=== PATIENT | male | born 1965 | race Caucasian/White ===

== ENCOUNTER → 2023-02-16 08:58 | Outpatient (BNVA) | payer OTHER, SELFPAY | PROVIDERS: Visit Provider Podiatrist Foot & Ankle Surgery | DX: T84.84XA Pain due to internal orthopedic prosthetic devices, implants and grafts, initial encounter (principal); Y79.2 Prosthetic and other implants, materials and accessory orthopedic devices associated with adverse incidents; M72.0 Palmar fascial fibromatosis [Dupuytren]; M79.641 Pain in right hand; M72.2 Plantar fascial fibromatosis | CPT/HCPCS: 73130; 73630; 99203; 99204 ==

== ENCOUNTER 2023-03-06 08:11 | Day surgery (SDC) | payer OTHER, SELFPAY ==
[2023-03-03 11:58] VITALS: BMI 26.6
[2023-03-06] VITALS (8 sets, daily range): BP systolic 121–161; BP diastolic 70–106; PULSE 49–57; RESP 16–18; TEMP 36.1; O2SAT 94–97
--- NOTE | 2023-03-06 | XR_ITS ---
WS: [id number] C-ARM RADIOGRAPHS RIGHT FOREARM; 2 IMAGES HISTORY: right distal forearm hardware removal COMPARISON: 02/16/2023 hand radiograph. Imaging of the wrist is submitted. Hardware is no longer present. Hardware tracks are identified but the hardware has been removed from the distal radius. XR/XR forearm RT 2V [id number] IMPRESSION: Interval removal of the distal radial hardware.
--- NOTE | 2023-03-06 08:39 | P.ANESASSM_ITS ---
Pre-Anesthetic Assessment Height/Weight: Height 1.75 m Weight 81.647 kg Temp Pulse Resp BP Pulse Ox O2 Del Method 97 F L 57 L 18 131/73 94 Room Air 03/06/23 08:28 03/06/23 08:28 03/06/23 08:28 03/06/23 08:28 03/06/23 08:28 03/06/23 08:30 Preop Diagnosis: Right wrist painful orthopedic hardware Operation Date: 03/06/23 07:00 Proposed Procedures p Right distal radius hardware removal 22683,T84.84XA(Right) - Dhruv Dixie, DO Familial anesthetic complications: None Was Beta Anil taken within 24 hours: N/A Was Clonidine taken within 24 hours: N/A Last intake: Intake Last Liquid Date 03/25/23 Last Liquid Time 02:20 Last Solid Date 03/05/23 Last Solid Time 20:00 Social Tobacco and No alcohol Exam alert, oriented x 3, clear to auscultation bilaterally and regular rate & rhythm Airway Mallampati: Class II Dentition: other (missing) Anesthetic Plan ASA status: 2 Anesthesia: General Risk of > 500 ml blood loss (7ml/kg in children): No Medications/Allergies Home Medications Medication Instructions Recorded Confirmed Last Taken Type atorvastatin 40 mg tablet 40 mg PO DAILY 03/06/23 03/06/23 03/05/23 History Allergies Allergy/AdvReac Type Severity Reaction Status Date / Time No Known Allergies Allergy Verified 02/16/23 10:11 [facility] Anesthesia Social History (Updated 02/16/23 @ 10:12 by Ashley Beckman LPN) Smoking and tobacco status: current every day smoker Alcohol intake: never Marital status: Data Anesthesia Cardiac Studies: No Data to Display
[2023-03-06] MEDS: sodium chloride 0.9% 1,000 ML 30 ML IV (08:44)
[2023-03-06] MEDS: acetaminophen 1,000 MG/100 ML PIGGYBACK 400 MG IV (08:45)
[2023-03-06] MEDS: ketorolac 30 mg/mL INJ IVP (08:48)
--- NOTE | 2023-03-06 10:25 | W.PM.OPSUD ---
Surgery/Procedure H&P Update DATE OF PROCEDURE: March 06, 2023 DATE H&P PERFORMED: 02/16/23 CHANGES TO PREVIOUS DOCUMENTATION: None. No change in HPI from office visit on 02/16/2023. Patient continues to have pain with orthopedic hardware that is loosened. Healed fracture noted. We talked about treatment options through shared decision-making he would like to have this removed. Plan to proceed with right wrist removal of deep orthopedic hardware. Patient understands risk benefits complication alternatives surgery elects proceed with surgical intervention. All questions answered. PREOP DIAGNOSIS: Right wrist painful orthopedic hardware PRIMARY INDICATION FOR PROCEDURE: Right wrist painful orthopedic hardware. PLANNED PROCEDURE: Operation Date: 03/06/23 07:00 Proposed Procedures p Right distal radius hardware removal 40355,T84.84XA(Right) - Dhruv Abraham DO
[2023-03-06] MEDS: ceFAZolin 2,000 MG in sodium chloride 0.9% (plus) 50 ML 100 MG IV (10:42)
[2023-03-06] MEDS: BUPivacaine 0.5% INJ 10 mL INJECTION (11:53)
[2023-03-06] MEDS: lidocaine 1% INJ 10 mL (per mL) XX (11:53)
--- NOTE | 2023-03-06 12:11 | P.PCN_ITS ---
PACU note Narrative: Patient taken to PACU in stable condition recovering well. Pain controlled. Patient is dressing on in place clean dry and intact. Fingertips warm well- perfused brisk capillary refill less than 2 seconds sensation intact to light touch distally. Patient is able to wiggle fingers. Exam: awake Disposition: discharged
--- NOTE | 2023-03-06 12:11 | PM.OP2 ---
Brief Operative Note Date of procedure: 03/06/23 Pre-op diagnosis: Right distal radius painful orthopedic hardware Post-op diagnosis: same (Same, loose with bony exostosis) Procedure Done: Right distal radius removal of orthopedic hardware Surgeon: Dhruv Abraham Estimated blood loss (mL): 5 Complications: None Post-op Plan: Patient taken to PACU in stable condition recovering well receive appropriate discharge options as well as pain medication postoperatively. We will follow-up with me in the office in 2 weeks. Condition: stable Disposition: same day Coding Level of Care Code Acute Code for Ferny Roldan
--- NOTE | 2023-03-06 12:11 | PM.OP ---
Operative Report Date of procedure: March 06, 2023 Pre-op diagnosis: Preop Diagnosis Right wrist painful orthopedic hardware Post-op diagnosis: Same Procedure done: Right distal radius removal of deep orthopedic hardware Surgeon: Dhruv Abraham DO Estimated blood loss: 5 mL 32 minutes IV fluids: 500 mL Complications: None Findings: See operative report narrative Condition: stable Disposition: same day Brief History: Patient presents to the office in outpatient setting after having sustained a distal radius fracture was fixed in the back roughly in the 80s. He is complaining of pain in his wrist he has tenderness to palpation of his orthopedic hardware and on evidence there is signs of this loosening with screws backing out given the prominence this is on clinical examination as well as radiographically and this being healed would recommend surgical intervention to have this removed as patient requested he like to have this done. Through shared decision-making he agrees to proceed with surgical intervention. All questions been answered at this time we will proceed with a right distal radius removal of orthopedic hardware. Procedure: Patient was seen evaluate in the preoperative holding area. Consent was reviewed and signed with patient. Correct extremity marked. Patient seen evaluated by anesthesia once cleared for surgery was taken back to the operative suite kept on the [facility] and an armboard was applied to the right upper extremity. He then underwent anesthesia per the anesthesia department once properly anesthetized a nonsterile tourniquet was applied to the right upper arm. His right upper extremity was then prepped and draped in sterile orthopedic fashion. Final timeout performed. Patient received appropriate preoperative antibiotics. Esmarch tourniquet was used exsanguinate the right upper extremity at 250 mmHg. Previous volar distal radius approach was then utilized from his previous incision sharp scalpel incision was made only through skin I then switched to Littler dissection scissors and then performed a standard FCR modified approach to the volar distal radius. Once mobilizing the floor of the FCR sheath I then came and encountered upon the distal screw head this was noted and subsequently removed atraumatically there was a significant amount of bony exostosis which was removed to its entirety with a rongeur. Next an atraumatic fashion I utilized sharp scalpel excision as well as blunt periosteal elevators to mobilize all adhesions and scar tissue off the distal radius plate until I had full visualization of all proximal and distal screws once this was performed I then utilized appropriate screwdrivers to remove all the screws atraumatically once this was confirmed and I utilized with mini C arm to confirm this I then removed the volar distal radius plate atraumatically by placing a [place] under this and freed up all adhesions and this was removed atraumatically without fracturing. I then utilized a rongeur to remove all bony prominences and exostosis throughout the distal radius once this was complete I took final x-rays and took the wrist through range of motion and showed a stable healed right distal radius. At this point time tourniquet was deflated hemostasis satisfactory thorough irrigation performed of the right wrist. And then the incision was closed in layered fashion of 3-0 Vicryl suture and a running nylon mattress stitch. Patient was then dressed in Xeroform 4 x 4's ABD Curlex and a soft dressing with an Benny wrap. He was awake from anesthesia and taken to PACU in stable condition. Disposition: Patient taken to PACU in stable condition recovering well pain controlled. Will receive appropriate discharge instructions as well as pain medication postoperatively. To follow-up with me in the office in 2 weeks.
[2023-03-06] MEDS: HYDROcodone-acetaminophen 5-325 mg Tablet 1 TAB PO (12:44)
--- NOTE | 2023-03-06 12:59 | ANE.PACU2 ---
Inpatient post-anesthesia follow up: Airway intact: Yes Vital signs: Temperature 97 F Pulse Rate 53 Respiratory Rate 18 Blood Pressure 121/87 Pulse Oximetry 96 Oxygen Delivery Me thod Room Air Oxygen Flow Rate Fraction of Inspir ed Oxygen Hydration adequate: Yes Nausea and vomiting: Yes Pain level: 1 Mental status: Baseline
== END 2023-03-06 13:48 | disposition home or self-care (01) ==
PROVIDERS: PCP Family Medicine; Visit Provider Student in an Organized Health Care Education/Training Program
PROC: (CPT 20680; principal; 2023-03-06 09:40)
DX: T84.84XA Pain due to internal orthopedic prosthetic devices, implants and grafts, initial encounter (principal); G89.18 Other acute postprocedural pain; M25.531 Pain in right wrist; F17.200 Nicotine dependence, unspecified, uncomplicated; Y83.8 Other surgical procedures as the cause of abnormal reaction of the patient, or of later complication, without mention of misadventure at the time of the procedure
CPT/HCPCS: 20680; 73090; 76000; J0131; J0690; J1100; J1885; J2405; J2704; J3010; J3490; J7030

== ENCOUNTER → 2023-03-21 12:37 | Outpatient (BNVA) | payer OTHER, SELFPAY | PROVIDERS: PCP Family Medicine; Visit Provider Student in an Organized Health Care Education/Training Program | DX: M72.0 Palmar fascial fibromatosis [Dupuytren] (principal) | CPT/HCPCS: 73130; 99213 ==